=== PATIENT | female | born 1985 | race Caucasian/White ===

== ENCOUNTER 2018-12-20 18:38 | Emergency (ER) | payer MEDICAID ==
[~2018-12-20] VITALS: Ht 172.7 cm; Wt 152.4 kg
[2018-12-20] MEDS ORDERED: CLARITIN10 MG PO (19:10)
[2018-12-20] MEDS ORDERED: FLONASE ALLERG9.9 ML NAS (19:10)
[2018-12-20] MEDS ORDERED: PREDNISONE10 MG PO (19:10)
[2018-12-20] MEDS ORDERED: MUCINEX DM ER1 EACH PO (19:10)
== END 2018-12-20 20:01 | disposition home or self-care (01) ==
LOC: ED 18:38
DX: B34.9 Viral infection, unspecified (principal); R03.0 Elevated blood-pressure reading, without diagnosis of hypertension; Z88.4 Allergy status to anesthetic agent

== ENCOUNTER 2019-08-10 20:11 | Emergency (ER) | payer MEDICAID ==
[~2019-08-10] VITALS: Ht 172.7 cm; Wt 150.6 kg
[~2019-08-10 20:11] MED LIST: CLARITIN10 MG PO; FLONASE ALLERG9.9 ML NAS; MUCINEX DM ER1 EACH PO; PREDNISONE10 MG PO
[2019-08-10] MEDS ORDERED: AMOXICILLIN500 M2 PO (20:24)
[2019-08-10] MEDS ORDERED: NAPROSYN500 MG PO (20:24)
== END 2019-08-10 20:46 | disposition home or self-care (01) ==
LOC: ED 20:11
DX: K02.9 Dental caries, unspecified (principal); Z88.4 Allergy status to anesthetic agent; Z79.899 Other long term (current) drug therapy

== ENCOUNTER 2019-09-15 20:32 | Emergency (ER) | payer MEDICAID ==
[~2019-09-15] VITALS: Ht 172.7 cm; Wt 150.6 kg
[~2019-09-15 20:32] MED LIST changes: +AMOXICILLIN500 M2 PO; +NAPROSYN500 MG PO
[2019-09-15] MEDS ORDERED: GLUCOPHAGE1000 MG PO (20:36)
[2019-09-15] MEDS ORDERED: BUSPIRONE10 MG PO (20:37)
[2019-09-15] MEDS ORDERED: ABILIFY15 MG PO (20:37)
[2019-09-15] MEDS ORDERED: TRAMADOL HCL50 MG PO (20:38)
== END 2019-09-15 22:30 | disposition home or self-care (01) ==
LOC: ED 20:32
DX: S39.012A Strain of muscle, fascia and tendon of lower back, initial encounter (principal); S80.02XA Contusion of left knee, initial encounter; Z88.4 Allergy status to anesthetic agent; Z79.899 Other long term (current) drug therapy; W10.8XXA Fall (on) (from) other stairs and steps, initial encounter; Y93.89 Activity, other specified; Y92.098 Other place in other non-institutional residence as the place of occurrence of the external cause; Y99.8 Other external cause status

== ENCOUNTER 2019-11-18 15:05 | Emergency (ER) | payer MEDICAID ==
[~2019-11-18] VITALS: Ht 172.7 cm; Wt 148.8 kg
[~2019-11-18 15:05] MED LIST changes: +ABILIFY15 MG PO; +BUSPIRONE10 MG PO; +GLUCOPHAGE1000 MG PO; +TRAMADOL HCL50 MG PO
[2019-11-18 16:21] LABS: BASO # 0.1 10*3/uL (0.0-0.1); BASO % 0.8 % (0.0-1.0); EOS # 0.1 10*3/uL (0.0-0.4); HEMATOCRIT 42.8 % (37.0-47.0); HEMOGLOBIN 13.8 g/dl (12.0-16.0); LYMPH # 3.1 10*3/uL (1.3-4.4); LYMPH % 36.9 % (27.0-41.0); MEAN CELL VOLUME 88.8 fl (81.0-99.0); MEAN CORPUSCULAR HGB 28.6 pg (27.0-31.0); MEAN CORPUSCULAR HGB CONC 32.2 g/dl (33.0-37.0); MEAN PLATELET VOLUME 12.3 fl (9.6-12.3); MONO # 0.4 10*3/uL (0.1-1.0); MONO % 5.1 % (3.0-9.0); NEUT # 4.7 10*3/uL (2.3-7.9); NEUT % 55.8 % (47.0-73.0); PLATELET COUNT AUTOMATED 198 10*3/uL (130-400); RED BLOOD COUNT 4.82 10*6/uL (4.10-5.10); RED CELL DISTRI WIDTH 12.9 % (0-14.5); WHITE BLOOD COUNT 8.4 10*3/uL (4.8-10.8)
[2019-11-18 16:37] LABS: ALBUMIN 3.7 gm/dl (3.1-4.5); BUN 11 mg/dl (7-24); CHLORIDE 108 mmol/L (98-107); CREATININE 0.76 mg/dL (0.55-1.02); POTASSIUM 3.8 mmol/L (3.5-5.1); SGOT/AST 27 IU/L (3-35); SGPT/ALT 90 U/L (12-78); SODIUM 141 mmol/L (136-145); TOTAL PROTEIN 7.6 gm/dL (6.4-8.2)
[2019-11-18 16:40] LABS: ALKALINE PHOSPHATASE 88 U/L (45-117)
[2019-11-18 16:45] LABS: TROPONIN I < 0.015 ng/ml (<0.045)
== END 2019-11-18 18:32 | disposition home or self-care (01) ==
LOC: ED 15:05
PROVIDERS: Nurse Practitioner Family
DX: M54.6 Pain in thoracic spine (principal); E11.9 Type 2 diabetes mellitus without complications; Z88.4 Allergy status to anesthetic agent; Z79.899 Other long term (current) drug therapy